=== PATIENT | male | born 1960 | race Caucasian/White ===

== ENCOUNTER 2022-11-01 07:35 | Outpatient (CLI) | payer BC | END 2022-11-01 07:36 | disposition home or self-care (01) | LOC: CSHULT 07:35 | PROVIDERS: ATTEND Family Medicine | DX: E05.90 Thyrotoxicosis, unspecified without thyrotoxic crisis or storm (principal); E04.2 Nontoxic multinodular goiter | CPT/HCPCS: 76536 ==

== ENCOUNTER 2024-04-27 09:32 | Outpatient (CLI) | payer BC | END 2024-04-27 09:33 | disposition home or self-care (01) | LOC: CSHULT 09:32 | PROVIDERS: ATTEND Family Medicine | DX: E04.1 Nontoxic single thyroid nodule (principal) | CPT/HCPCS: 76536 ==